=== PATIENT | male | born 1995 | race American Indian/Alaskan Native ===

== ENCOUNTER 2020-02-03 14:02 | Emergency (ER) | payer SELFPAY ==
[2020-02-03 14:10] VITALS: BP 126/82
--- NOTE | 2020-02-03 15:28 | Emergency Department Report ---
ED Palpitations HPI - General Chief Complaint: Arrhythmia/Palpitations Stated Complaint: HEART RATE ABNORMAL Time Seen by Provider: 02/03/20 14:53 Source: patient Mode of arrival: Ambulatory Limitations: No Limitations - History of Present Illness Initial Comments: This is a 24-year-old -[place] male who presents to the emergency room with palpitations and chest discomfort for 3 days. Past medical history of anxiety and depression. Patient states he was diagnosed with anxiety and depression in July when his mom passed. He is currently seeing a therapist Vesna Barcenas in [place]. States he is currently not prescribed medication. Reports palpitations are worse than usual. States he usually listens to meditative music which resolved symptoms but did not work over the past 2 to 3 days. He states chest pain earlier this morning which is now resolved. Denies shortness of breath, wheezing, fever, chills, dizziness, headache, or radiating pain. MD Complaint: "heart racing", palpitations Onset/Timin -: days(s) Associated Symptoms: chest pain, anxiety. denies: shortness of breath, syncope, near-syncope, nausea/vomiting, diaphoresis, cough, parasthesias, feeling of impending doom, muscle cramps - Related Data Allergies Allergy/AdvReac Type Severity Reaction Status Date / Time No Known Allergies Allergy Unverified 02/03/20 14:10 ED Review of Systems ROS: Stated complaint: HEART RATE ABNORMAL Other details as noted in HPI Constitutional: denies: chills, fever Respiratory: denies: cough, shortness of breath, wheezing Cardiovascular: palpitations. denies: chest pain, dyspnea on exertion, orthopnea, edema, syncope, paroxysmal nocturnal dyspnea Gastrointestinal: denies: abdominal pain, nausea, diarrhea Skin: denies: rash, lesions Neurological: denies: headache, weakness, paresthesias Psychiatric: as per HPI Hematological/Lymphatic: denies: easy bleeding, easy bruising ED Past Medical Hx - Past Medical History Previous Medical History?: No - Surgical History Past Surgical History?: No - Social History Smoking Status: Never Smoker Substance Use Type: None ED Physical Exam - General Limitations: No Limitations General appearance: alert, in no apparent distress, obese - ENT ENT exam: Present: mucous membranes moist - Neck Neck exam: Present: normal inspection - Respiratory Respiratory exam: Present: normal lung sounds bilaterally. Absent: respiratory distress - Cardiovascular Cardiovascular Exam: Present: regular rate, normal rhythm. Absent: systolic murmur, diastolic murmur, rubs, gallop - GI/Abdominal GI/Abdominal exam: Present: soft, normal bowel sounds. Absent: distended, tenderness, guarding, rebound, rigid - Neurological Exam Neurological exam: Present: alert, oriented X3, normal gait - Psychiatric Psychiatric exam: Present: normal affect, normal mood - Skin Skin exam: Present: warm, dry, intact, normal color. Absent: rash ED Course Vital Signs 02/03/20 14:08 Temperature 98.8 F Pulse Rate 82 Respiratory 18 Rate Blood Pressure 126/82 O2 Sat by Pulse 100 Oximetry ED Medical Decision Making - EKG Data -: No EKG Interpreted by Me (EKG interpreted by attending) EKG shows normal: sinus rhythm Rate: normal - Radiology Data Radiology results: report reviewed CHEST 2 VIEWS INDICATION: Palpitations. COMPARISON: None FINDINGS: Support devices: None. Heart: Within normal limits. Lungs/pleura: No acute air space or interstitial disease. No pneumothorax. Additional findings: None. IMPRESSION: 1. No acute findings. - Medical Decision Making Is a 24-year-old male who presents to the emergency room with palpitations for 2 to 3 days. Vitals are stable and patient in no acute distress. Past medical history of depression and anxiety. Work-up: Chest x-ray and EKG. EKG interpreted by attending with no STEMI or overt cardiac changes. Chest x-ray without cardiopulmonary findings. Based on H&P and testing the patient is low risk for emergent causes of palpitations such as acute coronary syndrome, PE, pneumonia, or DVT. Referral to psychology for continued care. Referrals to PCP for further testing and treatment. Patient discharged home stable with strict return instructions. Critical care attestation.: If time is entered above; I have spent that time in minutes in the direct care of this critically ill patient, excluding procedure time. ED Disposition Clinical Impression: Palpitations, Anxiety Disposition: DC-01 TO HOME OR SELFCARE Is pt being admited?: No Condition: Stable Instructions: Anxiety (ED) Additional Instructions: Continue seeing your therapist Vesna Barcenas as discussed. I have provided a list of primary care doctors for you to follow-up for further evaluation. Return to the emergency room only if worsening symptoms. Referrals: UZIEL CARTWRIGHT MD [Staff Physician] - 3-5 Days [facility] [Outside] - 3-5 Days [facility] [Outside] - 3-5 Days Time of Disposition: 16:18
--- NOTE | 2020-02-03 15:51 | XRay Report ---
CHEST 2 VIEWS INDICATION: Palpitations. COMPARISON: None FINDINGS: Support devices: None. Heart: Within normal limits. Lungs/pleura: No acute air space or interstitial disease. No pneumothorax. Additional findings: None. IMPRESSION: 1. No acute findings. Signer Name: Silvano Cheung MD Signed: 02/03/2020 3:46 PM Workstation Name: [id number]
== END 2020-02-03 16:35 | disposition home or self-care (01) ==
LOC: ED 14:02
DX: R00.2 Palpitations (principal); F41.9 Anxiety disorder, unspecified; R07.89 Other chest pain
CPT/HCPCS: 71046; 93005

== ENCOUNTER 2022-05-20 08:41 | Emergency (ER) | payer SELFPAY ==
[2022-05-20 09:36] VITALS: BP 148/75
[2022-05-20] MEDS ORDERED: DICYCLOMINE 20 MG TAB PO ONE (09:44)
--- NOTE | 2022-05-20 09:46 | Emergency Department Report ---
ED Abdominal Pain HPI - General Chief Complaint: Nausea/Vomiting/Diarrhea Stated Complaint: STOMACH ISSUES Time Seen by Provider: 05/20/22 09:41 Source: patient Mode of arrival: Ambulatory Limitations: No Limitations - History of Present Illness Initial Comments: 27 yo comes to ER with 6 week history of diarrhea. He thought it was related to something that he ate at work. However it has persisted. He denies any abdominal pain except with the cramping when he has the diarrhea. He denies any fever or chills. He denies any dysuria. He is ambulatory, nontoxic [id number] on exam. - Related Data Previous Rx's Medication Instructions Recorded Last Taken Type Dicyclomine [Bentyl] 20 mg PO QID PRN #12 tablet 05/20/22 Unknown Rx Allergies Allergy/AdvReac Type Severity Reaction Status Date / Time No Known Allergies Allergy Verified 05/20/22 09:16 ED Review of Systems ROS: Stated complaint: STOMACH ISSUES Other details as noted in HPI Comment: All other systems reviewed and negative ED Past Medical Hx - Past Medical History Previous Medical History?: No - Surgical History Past Surgical History?: No - Family History Family history: no significant - Social History Smoking Status: Never Smoker Substance Use Type: Alcohol - Medications Home Medications: Home Medications Medication Instructions Recorded Confirmed Last Taken Type Dicyclomine [Bentyl] 20 mg PO QID PRN #12 tablet 05/20/22 Unknown Rx ED Physical Exam - General Limitations: No Limitations General appearance: alert, in no apparent distress - Head Head exam: Present: atraumatic, normocephalic - Eye Eye exam: Present: normal appearance - ENT ENT exam: Present: mucous membranes moist - Neck Neck exam: Present: normal inspection - Respiratory Respiratory exam: Present: normal lung sounds bilaterally. Absent: respiratory distress - Cardiovascular Cardiovascular Exam: Present: regular rate, normal rhythm. Absent: systolic murmur, diastolic murmur, rubs, gallop - GI/Abdominal GI/Abdominal exam: Present: soft, normal bowel sounds - Rectal Rectal exam: Present: deferred - Extremities Exam Extremities exam: Present: normal inspection - Back Exam Back exam: Present: normal inspection - Neurological Exam Neurological exam: Present: alert, oriented X3 - Psychiatric Psychiatric exam: Present: normal affect, normal mood - Skin Skin exam: Present: warm, dry, intact, normal color. Absent: rash ED Course Vital Signs 05/20/22 09:35 Temperature 98.9 F Pulse Rate 72 Respiratory 18 Rate Blood Pressure 148/75 [Left] O2 Sat by Pulse 100 Oximetry ED Medical Decision Making - Medical Decision Making Vital Signs 05/20/22 09:35 Temperature 98.9 F Pulse Rate 72 Respiratory 18 Rate Blood Pressure 148/75 [Left] O2 Sat by Pulse 100 Oximetry Patient educated on chronic diarrhea. Have given him some Bentyl. I explained to him that given the longevity of this that it is not food poisoning or acute gastroenteritis. He is hemodynamically stable with a normal exam. He is being discharged home with Bentyl and PCP and GI follow-up. Patient is ambulatory, nontoxic [id number]. Patient is taking p.o. Patient verbalizes understanding of discharge plan of care including diet, a ctivity, medications and follow-up. - Differential Diagnosis Diarrhea, chronic Critical care attestation.: If time is entered above; I have spent that time in minutes in the direct care of this critically ill patient, excluding procedure time. ED Disposition Clinical Impression: Diarrhea Disposition: 01 HOME / SELF CARE / HOMELESS Is pt being admited?: No Does the pt Need Aspirin: No Condition: Stable Instructions: Diarrhea, Adult Additional Instructions: bland diet as we discussed avoid alcohol med as ordered today follow up with pcp and GI MD referrals below Prescriptions: Dicyclomine [Bentyl] 20 mg PO QID PRN #12 tablet PRN Reason: Diarrhea Referrals: UZIEL CARTWRIGHT MD [Staff Physician] - 3-5 Days BRY CASTAÑEDA MD [Staff Physician] - 3-5 Days Forms: Work/School Release Form(ED) Time of Disposition: 09:43
== END 2022-05-20 10:25 | disposition home or self-care (01) ==
LOC: ED 08:41
DX: R19.7 Diarrhea, unspecified (principal); F10.20 Alcohol dependence, uncomplicated
CPT/HCPCS: 99282